=== PATIENT | female | born 1950 | race Caucasian/White ===

== ENCOUNTER 2019-11-08 13:29 | Day surgery (SDC) | payer MEDICARE, OTHER ==
[~2019-11-08] VITALS: Ht 154.9 cm; Wt 62.0 kg
[2019-11-08] MEDS ORDERED: ONDANSETRON 2MG/ML, 2ML ONE ×2 (13:38→17:58)
[2019-11-08] MEDS ORDERED: HYDROmorphone 1 MG/ML, 1ML INJ ONE ×2 (13:38→14:31)
[2019-11-08] MEDS: HYDROmorphone 1 MG/ML, 1ML INJ IVPush PRN ×2 (13:41→14:33)
--- NOTE | 2019-11-08 13:44 | NUR ---
Pt brought straight back to room from her car. Pt states she was approximately 4ft up on a ladder when she felt the ladder start to fall. Pt states she jumped off the ladder and hit her L ankle on the curb and heard a "crack". Pt with obvious deformity of L ankle, CMS intact. Pt assisted to [place] and L LE propped up onto towels for comfort. Pt denies other injury at this time, no LOC. Pt medicted for pain.
[2019-11-08] MEDS ORDERED: PROPOFOL 10 MG/ML, 20ML ONE ×3 (13:58→17:58)
[2019-11-08] MEDS ORDERED: SODIUM CHLORIDE FLUSH 10ML SYR IVF ONE (14:00)
[2019-11-08] MEDS ORDERED: ONDANSETRON 2MG/ML, 2ML IVPush ONE (14:00)
--- NOTE | 2019-11-08 14:37 | NUR ---
Procedural sedation for closed reduction of L ankle completed by Dr. Gregorio. Pt tolerated well, VSS throughout. Please see sedation packet. Pt medicated for continued pain per NOV. Pt resting in bed with eyes closed, resp even and unlabored.
--- NOTE | 2019-11-08 14:48 | NUR ---
Pt states pain 5/10, states this is acceptable at this time. Pt remains drowsy but easily awakens to her name being called.
--- NOTE | 2019-11-08 15:02 | NUR ---
Pt to [place] via [facility] at this time.
[2019-11-08 15:26] LABS: BASOPHILS # (AUTO) 0.04 x10^3/uL (0-0.1); BASOPHILS % (AUTO) 1 % (0-1); EOSINOPHILS # (AUTO) 0.17 x10^3/uL (0-0.4); EOSINOPHILS % (AUTO) 3 % (1-7); LYMPHOCYTES # (AUTO) 1.92 x10^3/uL (1-3.4); LYMPHOCYTES % (AUTO) 37 % (22-44); MD NO; MEAN CORPUSCULAR HEMOGLOBIN 28.4 pg (27.0-34.8); MEAN CORPUSCULAR HGB CONC 32.9 g/dL (32.4-35.8); MEAN CORPUSCULAR VOLUME 86.3 fL (80-100); MEAN PLATELET VOLUME 8.6 fL (7.4-10.4); MONOCYTES # (AUTO) 0.58 x10^3/uL (0.2-0.8); MONOCYTES % (AUTO) 11 % (2-9); NEUTROPHILS # (AUTO) 2.43 x10^3/uL (1.8-6.8); NEUTROPHILS % (AUTO) 47 % (42-75); PLATELET COUNT 174 x10^3/uL (130-400); RED CELL DISTRIBUTION WIDTH 14.5 % (9.6-15.2)
--- NOTE | 2019-11-08 15:26 | NUR ---
Pt back from CT, states pain is 4/10, denies need for additional pain medication at this time. Pt provided chapstick per request. Dr. Mensah at bedside to discuss POC with pt.
[2019-11-08 15:28] LABS: ALBUMIN 3.5 g/dL (3.4-5.0); ANION GAP 8 mmol/L (5-15); CALCIUM 8.6 mg/dL (8.5-10.1); CHLORIDE 109 mmol/L (98-107); CREATININE 0.91 mg/dL (0.55-1.02)
[2019-11-08] MEDS ORDERED: thyroid med PO (15:29)
[2019-11-08 15:36] LABS: INTERNATIONAL NORMALIZED RATIO 1.01 (0.93-1.1); PROTHROMBIN TIME 10.7 Seconds (9.6-11.5)
--- NOTE | 2019-11-08 15:44 | NUR ---
assisted with bed trujillo, + urine output, pain still @ controllable level
--- NOTE | 2019-11-08 15:59 | NUR ---
report given to OR
[2019-11-08] MEDS ORDERED: SODIUM CHLORIDE FLUSH 10ML SYR IVF PRN (16:00)
[2019-11-08 16:11] VITALS: BP 100/70
[2019-11-08] MEDS ORDERED: MIDAZOLAM 1 MG/ML, 2ML ONE (16:39)
[2019-11-08] MEDS ORDERED: FENTANYL PF 250 MCG/5ML ONE (16:39)
[2019-11-08] MEDS ORDERED: ROPIvacaine/PF 0.2%, 20 ML ONE ×2 (16:40)
[2019-11-08] MEDS ORDERED: ROCURONIUM 10MG/ML,5ML ONE ×2 (16:42→17:58)
[2019-11-08] MEDS ORDERED: BUPIVACAINE/PF 0.5% ONE (16:43)
[2019-11-08] MEDS ORDERED: EPINEPHRINE 1 MG/ML, 1ML ONE (16:43)
[2019-11-08] MEDS ORDERED: SUGAMMADEX 200 MG/2 ML IVPush ONE (17:56)
[2019-11-08] MEDS ORDERED: GLYCOPYRROLATE 0.2MG/1ML, 5ML ONE (17:58)
[2019-11-08] MEDS ORDERED: CEFAZOLIN 1,000 MG ONE (17:58)
[2019-11-08] MEDS ORDERED: NEOSTIGMINE 1 MG/ML, 10ML ONE (17:58)
[2019-11-08] MEDS ORDERED: SUCCINYLCHOLINE 20 MG/ML, 10ML ONE (17:58)
[2019-11-08] MEDS ORDERED: DEXAMETHASONE 4 MG/ML, 1ML ONE (17:58)
[2019-11-08] MEDS ORDERED: LABETALOL 5MG/ML, 20ML IV PRN (18:00)
[2019-11-08] MEDS ORDERED: HYDROmorphone 2 MG/ML, 1ML IVPush PRN (18:00)
[2019-11-08] MEDS ORDERED: hydrALAzine 20 MG/ML, 1ML IV PRN (18:00)
[2019-11-08] MEDS ORDERED: FENTANYL PF 100 MCG/2ML IV PRN (18:00)
[2019-11-08] MEDS ORDERED: PROMETHAZINE 25 MG/ML, 1ML IV PRN (18:00)
[2019-11-08] MEDS ORDERED: HALOPERIDOL 5 MG/ML IV PRN (18:00)
[2019-11-08] MEDS ORDERED: MEPERIDINE/PF 25MG/ML,1ML IVPush PRN (18:00)
[2019-11-08] MEDS ORDERED: OXYcodone 5 MG/5 ML ORAL.SOL UDC PO PRN (18:00)
== END 2019-11-08 22:25 | disposition home or self-care (01) ==
LOC: ED 15:45 → UNDOADMIN 15:51 → OR 15:51 → EDIP 15:51 → 4NE 19:15 → UNDODISIN 22:25 → OR 22:25
PROVIDERS: ATTEND Orthopaedic Surgery
DX: S82.852A Displaced trimalleolar fracture of left lower leg, initial encounter for closed fracture (principal); S93.432A Sprain of tibiofibular ligament of left ankle, initial encounter; Z79.01 Long term (current) use of anticoagulants; Z88.0 Allergy status to penicillin; Z88.5 Allergy status to narcotic agent; W11.XXXA Fall on and from ladder, initial encounter; Y93.89 Activity, other specified; Y92.89 Other specified places as the place of occurrence of the external cause; Y99.8 Other external cause status
CPT/HCPCS: 27823; 36415; 64445; 64447; 71045; 73600; 73700; 80048; 82040; 85025; 85610; 85730; 96374; 96375; 96376; 99285; C1713; J0690; J1100; J1170; J2250; J2405; J2704; J2795; J3010; 76000; G0378; J0171; J2710; J0330